=== PATIENT | male | born 1960 | race Caucasian/White ===

== ENCOUNTER 2016-09-23 16:30 | Emergency (ER) | payer MEDICAID, OTHER, SELFPAY ==
[2016-09-23] MEDS ORDERED: ACETAMINOPHEN 325 MG TAB As Ordered ONE (18:12)
[2016-09-23 18:26] LABS: ANION GAP 8 MEQ/L (8-16); BLOOD UREA NITROGEN 15 MG/DL (7-18); CALCIUM LEVEL 9.5 MG/DL (8.5-10.1); CARBON DIOXIDE LEVEL 29 MEQ/L (21-32); CHLORIDE LEVEL 105 MEQ/L (98-107); CREATININE FOR GFR 1.26 MG/DL (0.70-1.30); GLOMERULAR FILTRATION RATE > 60.0 (>56); GLUCOSE, FASTING 140 MG/DL (70-105); POTASSIUM SERUM 3.6 MEQ/L (3.5-5.1); SODIUM LEVEL 142 MEQ/L (136-145)
[2016-09-23 18:29] LABS: BASO # 0.1 K/mm3 (0.0-0.2); BASO % 0.9 % (0.0-1.0); EOS # 0.2 K/mm3 (0.0-0.50); EOS % 1.8 % (0.0-3.0); LARGE UNSTAINED CELL % 0.5 % (0.0-4.0); LYMPH # 0.7 K/mm3 (1.5-4.5); LYMPH % 7.5 % (24.0-44.0); MEAN CORPUSCULAR HEMOGLOBIN 32.8 pg (27.0-33.0); MEAN CORPUSCULAR HGB CONC 34.5 g/dl (32.0-36.5); MEAN CORPUSCULAR VOLUME 95.2 fl (80.0-96.0); MONO # 0.4 K/mm3 (0.0-0.8); MONO % 4.7 % (0.0-5.0); NEUTROPHILS # 7.9 K/mm3 (1.8-7.7); NEUTROPHILS % 84.7 % (36.0-66.0); PLATELET COUNT, AUTOMATED 240 k/mm3 (150-450); RED CELL DISTRIBUTION WIDTH 12.4 % (11.5-14.5); WHITE BLOOD COUNT 9.4 K/mm3 (4.0-10.0)
--- NOTE | 2016-09-23 19:15 | REP ---
Chest x-ray: Two views: History: CVA greater than 4 1/2 hours. Findings: The lungs are well inflated and clear. CP angles are sharp. Heart is not enlarged. The aorta is slightly tortuous. No bony abnormality is seen. Pulmonary vasculature is not increased. Impression: No active disease. Signed by Americo Barker MD 09/23/2016 07:31 P
--- NOTE | 2016-09-23 19:16 | REP ---
CT study of the brain without contrast: History: CVA greater than 4 1/2 hours. No comparison study. Findings: Bone window settings demonstrate an intact bony calvarium. Visualized paranasal sinuses are clear. There is mild diffuse cerebral atrophy. Some small vessel changes are seen in the periventricular white matter of the parietal lobes. There is no evidence of intracranial hemorrhage. No extra-axial fluid collection is seen. No cortical infarct is appreciated. No mass or midline shift is seen. There is minimal vascular calcification. Impression: Diffuse atrophy and vascular calcification. Mild small vessel changes. No acute intracranial abnormality. Signed by Americo Barker MD 09/23/2016 07:31 P
--- NOTE | 2016-09-23 20:40 | REPUSA ---
MRA of the brain Clinical history: stroke. Technique: [id number] MRA images of the brain were obtained without administration of contrast. 3 -D MIP images were also obtained. Findings: The vascular structures extending from the distal carotid and vertebrobasilar arterial syst ems, through the [place], demonstrate normal caliber and contour. There is no evidence of an eurysm, stenosis, or thrombosis. Impression: Unremarkable MRA examination of the brain.
--- NOTE | 2016-09-23 20:40 | REPUSA ---
MRI of the brain without contrast Clinical history: stroke. Technique: Multiecho multiplanar MRI images of the brain were obtained without administration of cont rast. Diffusion weighted images with ADC mapping was also obtained. Findings: The ventricles and sulci are symmetric bilaterally. There is minimal T2 hyperintensity in the subcort ical white matter bilaterally. The brain parenchyma otherwise demonstrates uniform and normal signal on all sequences. There is no midline shift, mass effect, or extra-axial fluid collection. The midlin e intracranial structures do not demonstrate any gross abnormalities. The cervical cranial junction i s intact. The orbits are unremarkable. The visualized paranasal sinuses and mastoid air cells are britany ar. The osseous structures and superficial soft tissues are unremarkable. The vascular structures dem onstrate appropriate flow voids. Impression: No evidence of acute hemorrhage or infarct. Subcortical white matter signal changes sugge st mild chronic small vessel ischemic disease.
--- NOTE | 2016-09-23 22:40 | EDDOCDS ---
Physician Documentation [facility] Name: Yogesh Finley Age: 56 yrs Sex: Male : 1960 Arrival Date: 09/23/2016 Time: 16:30 Bed 11 Private MD: Daniella Rowley Disposition: 09/23 18:35 I have independently interviewed and examined the patient, and I agree with the pc investigation, diagnosis and treatment plan as documented by the Resident. Disposition: 09/23/16 22:28 Discharged to Home/Self Care. Impression: Transient cerebral ischemic attack, unspecified. - Condition is Stable. - Medication Reconciliation, Local Pharmacy Hours form. - Follow up: Daniella Rowley; When: 2 - 3 days; Reason: Recheck today's complaints. - Problem is new. - Symptoms have improved. Historical: - Allergies: no known allergies; - Home Meds: 1. lisinopril 40 mg Oral tab 1 tab once daily 2. gabapentin 300 mg am and 600 mg pm Oral tab 3. baclofen 10 mg Oral tab bid 4. atorvastatin 20 mg oral tab 0.5 tab once daily 5. Vitamin D3 1,000 unit oral tab daily 6. Sertraline 50 mg nightly 7. tamsulosin 0.4 mg oral cp24 1 cap once daily 8. amlodipine 10 mg Oral tab 1 tab once daily - PMHx: CVA (2014); TIA; Hypertension; BPH; Hypercholesterolemia; neuropathy; - PSHx: Tonsillectomy; - Social history: Smoking status: Patient states was never smoker of tobacco. No barriers to communication noted, The patient speaks fluent Hebrew. - Family history: Not pertinent. - Exposure Risk Screening:: None identified. Vital Signs: 16:32 BP 169 / 84; Pulse 110; Resp 16; Temp 101.7(T); Pulse Ox 99% on R/A; Weight 101.6 kg / rs6 223.99 lbs (R); Height 5 ft. 8 in. (172.72 cm) (R); Pain 7/10; 16:58 BP 140 / 71 (auto/); ead 17:00 Pulse 108 MON; Resp 16; Pulse Ox 95% on R/A; ead 17:13 BP 132 / 68 (auto/); ead 17:14 Pulse 108 MON; Pulse Ox 98% ; ead 17:28 BP 132 / 68 (auto/); ead 17:29 Pulse 108 MON; Pulse Ox 97% ; ead 17:43 BP 131 / 68 (auto/); ead 17:44 Pulse 108 MON; Pulse Ox 95% ; ead 17:58 BP 134 / 66 (auto/); ead 17:58 Pulse 108 MON; Pulse Ox 98% ; ead 18:22 BP 132 / 79 (auto/); ead 18:24 Pulse 106 MON; Pulse Ox 97% ; ead 18:28 BP 130 / 72 (auto/); mlc 18:29 Pulse 106 MON; Pulse Ox 96% ; mlc 18:43 BP 127 / 67 (auto/); mlc 18:44 Pulse 106 MON; Pulse Ox 94% ; mlc 18:58 BP 123 / 64 (auto/); mlc 18:59 Pulse 106 MON; Pulse Ox 97% ; mlc 19:13 BP 127 / 70 (auto/); mlc 19:14 Pulse 104 MON; Pulse Ox 95% ; mlc 19:28 BP 120 / 64 (auto/); mlc 19:29 Pulse 102 MON; Pulse Ox 95% ; mlc 19:35 Temp 100.6(O); cln 19:43 BP 121 / 65 (auto/); mlc 19:44 Pulse 106 MON; Pulse Ox 95% ; mlc 20:56 BP 117 / 66 (auto/); mlc 20:58 Pulse 94 MON; Pulse Ox 95% ; mlc 21:26 Pulse 98 MON; Pulse Ox 95% ; mlc 21:26 BP 119 / 68 (auto/); mlc 21:56 Pulse 92 MON; Pulse Ox 95% ; mlc 21:56 BP 113 / 72 (auto/); mlc 22:25 Pulse 90 MON; Pulse Ox 96% ; mlc 22:37 BP 123 / 70; Pulse 88; Resp 18; Temp 99.5(O); Pulse Ox 94% ; Pain 0/10; mlc 16:32 Body Mass Index 34.06 (101.60 kg, 172.72 cm) rs6 MDM: 17:47 CBC with Diff Ordered. EDMS 17:47 BMP Ordered. EDMS 17:47 CT Head Without Contrast Ordered. EDMS 17:48 Chest, 2 View (pa\E\lat) Ordered. EDMS 18:02 Acetaminophen Tablet 650 mg PO once ordered. jo4 18:04 UA Ordered. EDMS 18:18 [facility] Payment Agreement was scanned into [employer] and attached to record. jp5 18:19 Financial registration complete. jp5 18:20 MRI Screening Tool - Place on chart, inform RN ordered. jo4 18:21 -MRA-Brain without contrast Ordered. EDMS 18:21 -MRI-Brain without Ordered. EDMS 18:28 BMP Reviewed. jo4 18:30 CBC with Diff Reviewed. jo4 18:30 MRI Screening Tool - Place on chart, inform RN complete. lbd 18:59 Misc Electronic Heat Seal Operator Order ordered. jo4 18:59 UA Reviewed. jo4 19:01 Misc Electronic Heat Seal Operator Order complete. ml3 Administered Medications: 18:25 Drug: Acetaminophen 650 mg [acetaminophen 325 mg tablet (2 tabs)] Route: PO; ead Signatures: Dispatcher [employer] EDMS Riccardo Blue MD MD pc Daly, Linda, Switchboard Inspector Unit lbd Yann VeritoBrendaJo-Ann, Switchboard Inspector Unit ml3 Consuelo Dallas, RN RN Louie Guevara, DO cs11 Any Garcia,RN RN Tenizn Fitch jp5 Trista Sauer, DO DO jo4 Nathalie Oquendo RN eachristopher The chart was reviewed and I authenticate all verbal orders and agree with the evaluation and treatment provided.Attachments: 18:18 [facility] Payment Agreement jp5 MTDD
--- NOTE | 2016-09-23 22:40 | EDDOCDS ---
Nurse's Notes [facility] Name: Yogesh Finley Age: 56 yrs Sex: Male : 1960 Arrival Date: 09/23/2016 Time: 16:30 Bed 11 Private MD: Daniella Rowley Diagnosis: Transient cerebral ischemic attack, unspecified Presentation: 09/23 16:36 Presenting complaint: Patient states: upon waking at 0600 this morning noted droop to jjr right with change in speech, pt was at scheduled [place] [facility] appt and was directed here. The last date and time the patient was known to be well was was at 22:00 on September 22, 2016. An acute neurological deficit is present. The patient has been moved to a treatment area. Pre-hospital glucose is not applicable to this patient. Adult Sepsis Screening: Patient has new or worsening altered mentation (1 point). Patient's respiratory rate is less than 22. Systolic blood pressure is greater than 100. Patient has a qSOFA score of 1- Negative Sepsis Screen. Suicide/Homicide risk assessment- the patient denies having any suicidal and/or homicidal ideations and does not present with any other emotional, behavioral or mental health complaints. 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 Transition of care: patient was received [facility] a primary [facility] office[facility] 16:36 Acuity: JESSE Level 3 jjr 16:36 Method Of Arrival: Wheelchair jjr Triage Assessment: 16:44 The onset of the patients symptoms was more than three hours ago. General: Appears in jjr no apparent distress. General: Reports chills for 0-12 hours. Pain: Location: left leg. Pt Declines HIV testing. Neurological: Level of Consciousness is awake, alert, Facial droop on right, Numbness in left arm and left leg Reports weakness. Historical: - Allergies: no known allergies; - Home Meds: 1. lisinopril 40 mg Oral tab 1 tab once daily 2. gabapentin 300 mg am and 600 mg pm Oral tab 3. baclofen 10 mg Oral tab bid 4. atorvastatin 20 mg oral tab 0.5 tab once daily 5. Vitamin D3 1,000 unit oral tab daily 6. Sertraline 50 mg nightly 7. tamsulosin 0.4 mg oral cp24 1 cap once daily 8. amlodipine 10 mg Oral tab 1 tab once daily - PMHx: CVA (2014); TIA; Hypertension; BPH; Hypercholesterolemia; neuropathy; - PSHx: Tonsillectomy; - Social history: Smoking status: Patient states was never smoker of tobacco. No barriers to communication noted, The patient speaks fluent Amharic. - Family history: Not pertinent. - Exposure Risk Screening:: None identified. Screenin:28 Screening information is obtained from the patient. Fall risk: At risk due to gait mlc disturbance, weakness. Abuse/DV Screen: The patient / caregiver reports he/she is: not in a situation that causes fear, pain or injury. Nutritional screening: No deficits noted. home support is adequate. 19:29 Assistance ADL's: Requires assistance with meal preparation, this assistance is mlc provided by family members, housework, assistance is provided by family members. Advance Directives: Currently, there is no health care proxy. There is no active DNR order. There is no living will. There is no Power of Career Development Consultant. Assessment: 17:15 General: Appears in no apparent distress, comfortable, Behavior is appropriate for age, ead cooperative, pleasant. Pain:. Pain: Denies pain. Neurological: Level of Consciousness is awake, alert, obeys commands, Oriented to person, place, time, Regional Director Of Admissions are equal bilaterally Moves all extremities. Weakness in left leg(s) Speech with expressive aphasia noted, Facial droop on right, Facial symmetry: tongue is midline, Pupils are PERRLA, pt states "mild tingling in right leg.". Denies dizziness, headache Reports left sided weakness from previous CVA. denies changes in left sided deficits. . Cardiovascular: Capillary refill < 3 seconds in bilateral fingers Chest pain is denied. Respiratory: Airway is patent Respiratory effort is even, unlabored, Denies shortness of breath. Derm: Skin is pink, warm & dry. 18:15 General: Appears in no apparent distress, comfortable, Behavior is appropriate for age, ead cooperative. Neurological: Level of Consciousness is awake, alert, obeys commands, Oriented to person, place, time. Respiratory: Airway is patent Respiratory effort is even, unlabored. Derm: Skin is pink, warm & dry. 19:15 General: Appears in no apparent distress, comfortable, Behavior is cooperative. mlc General: Reports fatigue for. General: pt awaking MRI. Pain: Denies pain. Neurological: Level of Consciousness is awake, alert, Oriented to person, place, time. Neurological: Regional Director Of Admissions are equal bilaterally Weakness in left leg(s) Facial droop on right, Facial symmetry: tongue is midline. Cardiovascular: Heart tones S1 S2 present Rhythm is sinus tachycardia. Respiratory: Airway is patent Respiratory effort is even, unlabored, Respiratory pattern is regular, Breath sounds are clear bilaterally. GI: Abdomen is obese, Bowel sounds present X 4 quads. Derm: Skin is pink, warm & dry. 20:10 Reassessment: pt currently in MRI. mlc 20:54 General: Appears in no apparent distress, comfortable, Behavior is cooperative. mlc General: no changes since prior. resp easy/unlabored. . 21:24 Reassessment: Patient appears in no apparent distress at this time. no changes since mlc prior. pt resting comfortably in bed, resp easy/unlabored . 22:26 Reassessment: Patient appears in no apparent distress at this time. Patient denies pain mlc at this time. pt resting comfortably in bed, resp easy/unlabored. pt offers no complaints. . 22:37 General: Appears in no apparent distress, comfortable, Behavior is cooperative. mlc Neurological: Level of Consciousness is awake, alert, Oriented to person, place, time. Respiratory: Airway is patent Respiratory effort is even, unlabored, Respiratory pattern is regular. Derm: Skin is pink, warm & dry. Vital Signs: 16:32 BP 169 / 84; Pulse 110; Resp 16; Temp 101.7(T); Pulse Ox 99% on R/A; Weight 101.6 kg rs6 (R); Height 5 ft. 8 in. (172.72 cm) (R); Pain 7/10; 16:58 BP 140 / 71 (auto/); ead 17:00 Pulse 108 MON; Resp 16; Pulse Ox 95% on R/A; ead 17:13 BP 132 / 68 (auto/); ead 17:14 Pulse 108 MON; Pulse Ox 98% ; ead 17:28 BP 132 / 68 (auto/); ead 17:29 Pulse 108 MON; Pulse Ox 97% ; ead 17:43 BP 131 / 68 (auto/); ead 17:44 Pulse 108 MON; Pulse Ox 95% ; ead 17:58 BP 134 / 66 (auto/); ead 17:58 Pulse 108 MON; Pulse Ox 98% ; ead 18:22 BP 132 / 79 (auto/); ead 18:24 Pulse 106 MON; Pulse Ox 97% ; ead 18:28 BP 130 / 72 (auto/); mlc 18:29 Pulse 106 MON; Pulse Ox 96% ; mlc 18:43 BP 127 / 67 (auto/); mlc 18:44 Pulse 106 MON; Pulse Ox 94% ; mlc 18:58 BP 123 / 64 (auto/); mlc 18:59 Pulse 106 MON; Pulse Ox 97% ; mlc 19:13 BP 127 / 70 (auto/); mlc 19:14 Pulse 104 MON; Pulse Ox 95% ; mlc 19:28 BP 120 / 64 (auto/); mlc 19:29 Pulse 102 MON; Pulse Ox 95% ; mlc 19:35 Temp 100.6(O); cln 19:43 BP 121 / 65 (auto/); mlc 19:44 Pulse 106 MON; Pulse Ox 95% ; mlc 20:56 BP 117 / 66 (auto/); mlc 20:58 Pulse 94 MON; Pulse Ox 95% ; mlc 21:26 Pulse 98 MON; Pulse Ox 95% ; mlc 21:26 BP 119 / 68 (auto/); mlc 21:56 Pulse 92 MON; Pulse Ox 95% ; mlc 21:56 BP 113 / 72 (auto/); mlc 22:25 Pulse 90 MON; Pulse Ox 96% ; mlc 22:37 BP 123 / 70; Pulse 88; Resp 18; Temp 99.5(O); Pulse Ox 94% ; Pain 0/10; mlc 16:32 Body Mass Index 34.06 (101.60 kg, 172.72 cm) rs6 Vitals: 16:32 Log In Time: September 23, 2016 at 16:32. RN notified that patient meets Red Flag rs6 criteria. ED Course: 16:32 Patient visited by Caryn Vasquez PCA. rs6 16:32 Daniella Rowley is Private Physician. rs6 16:32 Patient moved to Waiting rs6 16:34 Patient visited by Caryn Vasquez PCA. rs6 16:40 Triage Initiated jjr 16:46 Nathalie Oquendo RN is Primary Nurse. jjr 16:46 Trista Sauer DO is PHCP. jo4 16:46 Riccardo Blue MD is Attending Physician. jo4 16:46 Patient moved to 11 jjr 16:57 Patient visited by Trista Sauer DO. jo4 16:57 Patient visited by Trista Sauer DO. jo4 17:01 Inserted saline lock: 18 gauge in right antecubital area and blood collected. The ead patient tolerated the procedure well. 17:07 The patient / caregiver is instructed regarding the plan of care and ED course. Patient ead has correct armband on for positive identification. Placed in gown. Bed in low position. Call light in reach. Side rails up X2. Adult w/ patient. complaint evaluation officer on. Pulse ox on. NIBP on. 17:14 Patient visited by Nathalie Oquendo RN. ead 17:52 BMP Sent. ead 17:52 CBC with Diff Sent. ead 18:18 Patient visited by Nathalie Oquendo RN. ead 18:18 [facility] Payment Agreement was scanned into [employer] and attached to record. jp5 18:25 Patient visited by Nathalie Oquendo RN. ead 18:25 UA Sent. ead 19:15 Any Garcia,ALBIN is Primary Nurse. mlc 19:17 Patient visited by Any Garcia RN. mlc 19:31 Primary Nurse role handed off by Nathalie Oquendo RN mcp 19:35 Patient visited by Tenisha Blanco PCA. cln 19:41 Chest, 2 View (pa\\E\\lat) Returned. EDMS 19:41 CT Head Without Contrast Returned. EDMS 19:49 Patient name changed from Yogesh\\S\\D\\S\\Willaims\\S\\ to Yogesh\\S\\D\\S\\Tushar. EDMS 19:50 Patient moved to MRI ml3 20:12 Patient visited by Any Garcia RN. mlc 20:46 Patient moved to 11 ml3 20:55 Patient visited by Any Garcia,ALBIN. mlc 21:26 Patient visited by Any Garcia RN. mlc 21:26 -MRA-Brain without contrast Returned. EDMS 21:26 -MRI-Brain without Returned. EDMS 21:42 Attending Physician role handed off by Riccardo Blue MD cs11 21:42 Louie Wing DO is Attending Physician. cs11 22:28 Patient visited by Any Garcia RN. mlc 22:28 Daniella Rowley is Referral Physician. cs11 22:37 Discontinued IV lock intact, bleeding controlled, pressure dressing applied, No mlc redness/swelling at site. No procedures done that require assistance. Administered Medications: 18:25 Drug: Acetaminophen 650 mg [acetaminophen 325 mg tablet (2 tabs)] Route: PO; ead Order Results: Lab Order: CBC with Diff; SPEC'M 09/23/16 16:59 Test: WHITE BLOOD COUNT; Value: 9.4; Range: 4.0-10.0; Units: K/mm3; Status: F Test: RED BLOOD COUNT; Value: 4.32; Range: 4.30-6.10; Units: M/mm3; Status: F Test: HEMOGLOBIN; Value: 14.2; Range: 14.0-18.0; Units: g/dl; Status: F Test: HEMATOCRIT; Value: 41.1; Range: 42.0-52.0; Abnormal: Below low normal; Units: %; Status: F Test: MEAN CORPUSCULAR VOLUME; Value: 95.2; Range: 80.0-96.0; Units: fl; Status: F Test: MEAN CORPUSCULAR HEMOGLOBIN; Value: 32.8; Range: 27.0-33.0; Units: pg; Status: F Test: MEAN CORPUSCULAR HGB CONC; Value: 34.5; Range: 32.0-36.5; Units: g/dl; Status: F Test: RED CELL DISTRIBUTION WIDTH; Value: 12.4; Range: 11.5-14.5; Units: %; Status: F Test: PLATELET COUNT, AUTOMATED; Value: 240; Range: 150-450; Units: k/mm3; Status: F Test: NEUTROPHILS %; Value: 84.7; Range: 36.0-66.0; Abnormal: Above high normal; Units: %; Status: F Test: LYMPH %; Value: 7.5; Range: 24.0-44.0; Abnormal: Below low normal; Units: %; Status: F Test: MONO %; Value: 4.7; Range: 0.0-5.0; Units: %; Status: F Test: EOS %; Value: 1.8; Range: 0.0-3.0; Units: %; Status: F Test: BASO %; Value: 0.9; Range: 0.0-1.0; Units: %; Status: F Test: LARGE UNSTAINED CELL %; Value: 0.5; Range: 0.0-4.0; Units: %; Status: F Test: NEUTROPHILS #; Value: 7.9; Range: 1.8-7.7; Abnormal: Above high normal; Units: K/mm3; Status: F Test: LYMPH #; Value: 0.7; Range: 1.5-4.5; Abnormal: Below low normal; Units: K/mm3; Status: F Test: MONO #; Value: 0.4; Range: 0.0-0.8; Units: K/mm3; Status: F Test: EOS #; Value: 0.2; Range: 0.0-0.50; Units: K/mm3; Status: F Test: BASO #; Value: 0.1; Range: 0.0-0.2; Units: K/mm3; Status: F Test: LARGE UNSTAINED CELL #; Value: 0.0; Range: 0.0-0.4; Units: K/mm3; Status: F Lab Order: [facility]; SPEC'M 09/23/16 16:59 Test: GLUCOSE, FASTING; Value: 140; Range: 70-105; Abnormal: Above high normal; Units: MG/DL; Status: F Test: BLOOD UREA NITROGEN; Value: 15; Range: 7-18; Units: MG/DL; Status: F Test: CREATININE FOR GFR; Value: 1.26; Range: 0.70-1.30; Units: MG/DL; Status: F Test: GLOMERULAR FILTRATION RATE; Value: > 60.0; Range: >56; Status: F Test: SODIUM LEVEL; Value: 142; Range: 136-145; Units: MEQ/L; Status: F Test: POTASSIUM SERUM; Value: 3.6; Range: 3.5-5.1; Units: MEQ/L; Status: F Test: CHLORIDE LEVEL; Value: 105; Range: 98-107; Units: MEQ/L; Status: F Test: CARBON DIOXIDE LEVEL; Value: 29; Range: 21-32; Units: MEQ/L; Status: F Test: ANION GAP; Value: 8; Range: 8-16; Units: MEQ/L; Status: F Test: CALCIUM LEVEL; Value: 9.5; Range: 8.5-10.1; Units: MG/DL; Status: F Test Note: ; Units are mL/min/1.73 m2 Chronic Kidney Disease Staging per NKF: Stage I & II GFR >=60 Normal to Mildly Decreased Stage III GFR 30-59 Moderately Decreased Stage IV GFR 15-29 Severely Decreased Stage V GFR <15 Very Little GFR Left ESRD GFR <15 on SOCIAL CONTACT WORKER Lab Order: UA; SPEC'M 09/23/16 18:23 Test: APPEARANCE, URINE; Value: CLEAR; Range: CLEAR; Status: F Test: COLOR, URINE; Value: YELLOW; Range: YELLOW; Status: F Test: PH,URINE; Value: 5.0; Range: 5.0-9.0; Units: UNITS; Status: F Test: SPECIFIC GRAVITY URINE AUTO; Value: 1.015; Range: 1.002-1.035; Status: F Test: PROTEIN, URINE AUTO; Value: NEGATIVE; Range: NEGATIVE; Units: mg/dL; Status: F Test: GLUCOSE, URINE (UA) AUTO; Value: NEGATIVE; Range: NEGATIVE; Units: mg/dL; Status: F Test: KETONE, URINE AUTO; Value: NEGATIVE; Range: NEGATIVE; Units: mg/dL; Status: F Test: UROBILINOGEN, URINE AUTO; Value: 0.2; Range: 0.0-2.0; Units: mg/dL; Status: F Test: BILIRUBIN, URINE AUTO; Value: NEGATIVE; Range: NEGATIVE; Status: F Test: NITRITE, URINE AUTO; Value: NEGATIVE; Range: NEGATIVE; Status: F Test: LEUKOCYTE ESTERASE, URINE AUTO; Value: NEGATIVE; Range: NEGATIVE; Status: F Test: BLOOD, URINE BLOOD; Value: NEGATIVE; Range: NEGATIVE; Status: F Test: WBC, URINE AUTO; Value: 4; Range: 0-3; Abnormal: Above high normal; Units: /HPF; Status: F Test: RBC, URINE AUTO; Value: 1; Range: 0-3; Units: /HPF; Status: F Test: BACTERIA, URINE AUTO; Value: NEGATIVE; Range: NEGATIVE; Status: F Test: SQUAMOUS EPITHELIAL CELL UR AU; Value: 0; Range: 0-6; Units: /HPF; Status: F Test: MUCUS, URINE; Value: SMALL; Range: NEGATIVE; Status: F Test: HYALINE CAST, URINE AUTO; Value: 0; Range: 0-1; Units: /LPF; Status: F Radiology Order: CT Head Without Contrast Test: CT Head Without Contrast REASON FOR EXAMINATION: CVA >4.5hrs; CT study of the brain without contrast:; ; History: CVA greater than 4 1/2 hours.; ; No comparison study.; ; Findings: Bone window settings demonstrate an intact bony calvarium. Visualized; paranasal sinuses are clear.; ; There is mild diffuse cerebral atrophy. Some small vessel changes are seen in; the periventricular white matter of the parietal lobes. There is no evidence of; intracranial hemorrhage. No extra-axial fluid collection is seen. No cortical; infarct is appreciated. No mass or midline shift is seen. There is minimal; vascular calcification.; ; Impression:; ; Diffuse atrophy and vascular calcification. Mild small vessel changes. No acute; intracranial abnormality.; ; ; Signed by; Americo Barker MD 09/23/2016 07:31 P; Radiology Order: Chest, 2 View (pa\\E\\lat) Test: Chest, 2 View (pa\\E\\lat) REASON FOR EXAMINATION: CVA >4.5hrs; Chest x-ray: Two views:; ; History: CVA greater than 4 1/2 hours.; ; Findings: The lungs are well inflated and clear. CP angles are sharp. Heart is; not enlarged. The aorta is slightly tortuous. No bony abnormality is seen.; Pulmonary vasculature is not increased.; ; Impression:; ; No active disease.; ; ; Signed by; Americo Barker MD 09/23/2016 07:31 P; Radiology Order: -MRA-Brain without contrast Test: -MRA-Brain without contrast REASON FOR EXAMINATION: CVA >4.5hrs; ; MRA of the brain; Clinical history: stroke.; Technique: [id number] MRA images of the brain were obtained without administration of contrast. 3; -D MIP images were also obtained.; Findings: The vascular structures extending from the distal carotid and vertebrobasilar arterial syst; ems, through the [place] of [place], demonstrate normal caliber and contour. There is no evidence of an; eurysm, stenosis, or thrombosis.; Impression: Unremarkable MRA examination of the brain.; ; Radiology Order: -MRI-Brain without Test: -MRI-Brain without REASON FOR EXAMINATION: CVA >4.5hrs; ; MRI of the brain without contrast; Clinical history: stroke.; Technique: Multiecho multiplanar MRI images of the brain were obtained without administration of cont; rast. Diffusion weighted images with ADC mapping was also obtained.; Findings:; The ventricles and sulci are symmetric bilaterally. There is minimal T2 hyperintensity in the subcort; ical white matter bilaterally. The brain parenchyma otherwise demonstrates uniform and normal signal; on all sequences. There is no midline shift, mass effect, or extra-axial fluid collection. The midlin; e intracranial structures do not demonstrate any gross abnormalities. The cervical cranial junction i; s intact. The orbits are unremarkable. The visualized paranasal sinuses and mastoid air cells are britany; ar. The osseous structures and superficial soft tissues are unremarkable. The vascular structures dem; onstrate appropriate flow voids.; Impression: No evidence of acute hemorrhage or infarct. Subcortical white matter signal changes sugge; st mild chronic small vessel ischemic disease.; ; Outcome: 22:27 MRI Study completed. [facility] 22:27 CT Study completed. [facility] 22:28 Discharge ordered by Provider. cs11 22:37 Discharge Assessment: Patient awake, alert and oriented x 3. No cognitive and/or mlc functional deficits noted. Patient verbalized understanding of disposition instructions. patient administered narcotics - no. The following High Risk Discharge criteria are identified: None. Discharged to home via wheelchair, with family. Condition: good Condition: stable. Discharge instructions given to patient, Instructed on discharge instructions, follow up and referral plans. Demonstrated understanding of instructions, Pt was receptive of discharge instructions/ teaching. Property sent home with patient. 22:39 Patient left the ED. [facility] Signatures: Dispatcher [employer] EDMS Verito Beckett RN Briana Bob mcp, Beveling Machine Operator Unit ml3 Consuelo Dallas RN RN jjr Schiff, Craig, DO DO cs11 Nathalie Oquendo RN RN ead Booth, Mandy, RN RN mlc Schmitt, Rebecca, CHARLEE BRASS RECLAIMER rs6 Tenzin Contreras jp5 Trista Sauer DO DO jo4 Bella, Tenisha, BRASS RECLAIMER BRASS RECLAIMER cln MTDD
--- NOTE | 2016-09-25 23:40 | EDDOCDS ---
Physician Documentation [facility] Name: Yogesh Finley Age: 56 yrs Sex: Male : 1960 Arrival Date: 09/23/2016 Time: 16:30 Bed 11 Private MD: Daniella Rowley Disposition: 09/23 18:35 I have independently interviewed and examined the patient, and I agree with the pc investigation, diagnosis and treatment plan as documented by the Resident. Disposition: 09/23/16 22:28 Discharged to Home/Self Care. Impression: Transient cerebral ischemic attack, unspecified. - Condition is Stable. - Medication Reconciliation, Local Pharmacy Hours form. - Follow up: Daniella Rowley; When: 2 - 3 days; Reason: Recheck today's complaints. - Problem is new. - Symptoms have improved. Historical: - Allergies: no known allergies; - Home Meds: 1. lisinopril 40 mg Oral tab 1 tab once daily 2. gabapentin 300 mg am and 600 mg pm Oral tab 3. baclofen 10 mg Oral tab bid 4. atorvastatin 20 mg oral tab 0.5 tab once daily 5. Vitamin D3 1,000 unit oral tab daily 6. Sertraline 50 mg nightly 7. tamsulosin 0.4 mg oral cp24 1 cap once daily 8. amlodipine 10 mg Oral tab 1 tab once daily - PMHx: CVA (2014); TIA; Hypertension; BPH; Hypercholesterolemia; neuropathy; - PSHx: Tonsillectomy; - Social history: Smoking status: Patient states was never smoker of tobacco. No barriers to communication noted, The patient speaks fluent Ukrainian. - Family history: Not pertinent. - Exposure Risk Screening:: None identified. Vital Signs: 16:32 BP 169 / 84; Pulse 110; Resp 16; Temp 101.7(T); Pulse Ox 99% on R/A; Weight 101.6 kg / rs6 223.99 lbs (R); Height 5 ft. 8 in. (172.72 cm) (R); Pain 7/10; 16:58 BP 140 / 71 (auto/); ead 17:00 Pulse 108 MON; Resp 16; Pulse Ox 95% on R/A; ead 17:13 BP 132 / 68 (auto/); ead 17:14 Pulse 108 MON; Pulse Ox 98% ; ead 17:28 BP 132 / 68 (auto/); ead 17:29 Pulse 108 MON; Pulse Ox 97% ; ead 17:43 BP 131 / 68 (auto/); ead 17:44 Pulse 108 MON; Pulse Ox 95% ; ead 17:58 BP 134 / 66 (auto/); ead 17:58 Pulse 108 MON; Pulse Ox 98% ; ead 18:22 BP 132 / 79 (auto/); ead 18:24 Pulse 106 MON; Pulse Ox 97% ; ead 18:28 BP 130 / 72 (auto/); mlc 18:29 Pulse 106 MON; Pulse Ox 96% ; mlc 18:43 BP 127 / 67 (auto/); mlc 18:44 Pulse 106 MON; Pulse Ox 94% ; mlc 18:58 BP 123 / 64 (auto/); mlc 18:59 Pulse 106 MON; Pulse Ox 97% ; mlc 19:13 BP 127 / 70 (auto/); mlc 19:14 Pulse 104 MON; Pulse Ox 95% ; mlc 19:28 BP 120 / 64 (auto/); mlc 19:29 Pulse 102 MON; Pulse Ox 95% ; mlc 19:35 Temp 100.6(O); cln 19:43 BP 121 / 65 (auto/); mlc 19:44 Pulse 106 MON; Pulse Ox 95% ; mlc 20:56 BP 117 / 66 (auto/); mlc 20:58 Pulse 94 MON; Pulse Ox 95% ; mlc 21:26 Pulse 98 MON; Pulse Ox 95% ; mlc 21:26 BP 119 / 68 (auto/); mlc 21:56 Pulse 92 MON; Pulse Ox 95% ; mlc 21:56 BP 113 / 72 (auto/); mlc 22:25 Pulse 90 MON; Pulse Ox 96% ; mlc 22:37 BP 123 / 70; Pulse 88; Resp 18; Temp 99.5(O); Pulse Ox 94% ; Pain 0/10; mlc 16:32 Body Mass Index 34.06 (101.60 kg, 172.72 cm) rs6 MDM: 17:47 CBC with Diff Ordered. EDMS 17:47 BMP Ordered. EDMS 17:47 CT Head Without Contrast Ordered. EDMS 17:48 Chest, 2 View (pa\E\lat) Ordered. EDMS 18:02 Acetaminophen Tablet 650 mg PO once ordered. jo4 18:04 UA Ordered. EDMS 18:18 [facility] Payment Agreement was scanned into [employer] and attached to record. jp5 18:19 Financial registration complete. jp5 18:20 MRI Screening Tool - Place on chart, inform RN ordered. jo4 18:21 -MRA-Brain without contrast Ordered. EDMS 18:21 -MRI-Brain without Ordered. EDMS 18:28 BMP Reviewed. jo4 18:30 CBC with Diff Reviewed. jo4 18:30 MRI Screening Tool - Place on chart, inform RN complete. lbd 18:59 Misc Medical Records Technician Order ordered. jo4 18:59 UA Reviewed. jo4 19:01 Misc Medical Records Technician Order complete. ml3 09/24 19:07 T-Sheet-- Draft Copy was scanned into [employer] and attached to record. klr Administered Medications: 09/23 18:25 Drug: Acetaminophen 650 mg [acetaminophen 325 mg tablet (2 tabs)] Route: PO; ead Signatures: Dispatcher [employer] EDMS Riccardo Blue MD MD pc Daly, Linda, Director Of Corporate Marketing Unit lbd Briana Lerner, Director Of Corporate Marketing Unit 3 Consuelo Dallas, RN RN Louie Guevara DO DO cs11 Any Garcia,RN RN Tenzin Fitch jp5 Trista Sauer, DO jo4 Vianney Bliss Emily RN eachristopher The chart was reviewed and I authenticate all verbal orders and agree with the evaluation and treatment provided.Attachments: 18:18 [facility] Payment Agreement jp5 09/24 19:07 T-Sheet-- Draft Copy klr Chart Complete MTDD
--- NOTE | 2016-09-25 23:40 | EDDOCDS ---
Nurse's Notes [facility] Name: Yogesh Finley Age: 56 yrs Sex: Male : 1960 Arrival Date: 09/23/2016 Time: 16:30 Bed 11 Private MD: Daniella Rowley Diagnosis: Transient cerebral ischemic attack, unspecified Presentation: 09/23 16:36 Presenting complaint: Patient states: upon waking at 0600 this morning noted droop to jjr right with change in speech, pt was at scheduled [facility] appt and was directed here. The last date and time the patient was known to be well was was at 22:00 on September 22, 2016. An acute neurological deficit is present. The patient has been moved to a treatment area. Pre-hospital glucose is not applicable to this patient. Adult Sepsis Screening: Patient has new or worsening altered mentation (1 point). Patient's respiratory rate is less than 22. Systolic blood pressure is greater than 100. Patient has a qSOFA score of 1- Negative Sepsis Screen. Suicide/Homicide risk assessment- the patient denies having any suicidal and/or homicidal ideations and does not present with any other emotional, behavioral or mental health complaints. Status: Patient is not a imaging services director or dependent. Transition of care: patient was received [facility] a primary [facility] office[facility] 16:36 Acuity: JESSE Level 3 jjr 16:36 Method Of Arrival: Wheelchair jjr Triage Assessment: 16:44 The onset of the patients symptoms was more than three hours ago. General: Appears in jjr no apparent distress. General: Reports chills for 0-12 hours. Pain: Location: left leg. Pt Declines HIV testing. Neurological: Level of Consciousness is awake, alert, Facial droop on right, Numbness in left arm and left leg Reports weakness. Historical: - Allergies: no known allergies; - Home Meds: 1. lisinopril 40 mg Oral tab 1 tab once daily 2. gabapentin 300 mg am and 600 mg pm Oral tab 3. baclofen 10 mg Oral tab bid 4. atorvastatin 20 mg oral tab 0.5 tab once daily 5. Vitamin D3 1,000 unit oral tab daily 6. Sertraline 50 mg nightly 7. tamsulosin 0.4 mg oral cp24 1 cap once daily 8. amlodipine 10 mg Oral tab 1 tab once daily - PMHx: CVA (2014); TIA; Hypertension; BPH; Hypercholesterolemia; neuropathy; - PSHx: Tonsillectomy; - Social history: Smoking status: Patient states was never smoker of tobacco. No barriers to communication noted, The patient speaks fluent Lithuanian. - Family history: Not pertinent. - Exposure Risk Screening:: None identified. Screenin:28 Screening information is obtained from the patient. Fall risk: At risk due to gait mlc disturbance, weakness. Abuse/DV Screen: The patient / caregiver reports he/she is: not in a situation that causes fear, pain or injury. Nutritional screening: No deficits noted. home support is adequate. 19:29 Assistance ADL's: Requires assistance with meal preparation, this assistance is mlc provided by family members, housework, assistance is provided by family members. Advance Directives: Currently, there is no health care proxy. There is no active DNR order. There is no living will. There is no Power of Secondary History Teacher. Assessment: 17:15 General: Appears in no apparent distress, comfortable, Behavior is appropriate for age, ead cooperative, pleasant. Pain:. Pain: Denies pain. Neurological: Level of Consciousness is awake, alert, obeys commands, Oriented to person, place, time, Test Desk Supervisor are equal bilaterally Moves all extremities. Weakness in left leg(s) Speech with expressive aphasia noted, Facial droop on right, Facial symmetry: tongue is midline, Pupils are PERRLA, pt states "mild tingling in right leg.". Denies dizziness, headache Reports left sided weakness from previous CVA. denies changes in left sided deficits. . Cardiovascular: Capillary refill < 3 seconds in bilateral fingers Chest pain is denied. Respiratory: Airway is patent Respiratory effort is even, unlabored, Denies shortness of breath. Derm: Skin is pink, warm & dry. 18:15 General: Appears in no apparent distress, comfortable, Behavior is appropriate for age, ead cooperative. Neurological: Level of Consciousness is awake, alert, obeys commands, Oriented to person, place, time. Respiratory: Airway is patent Respiratory effort is even, unlabored. Derm: Skin is pink, warm & dry. 19:15 General: Appears in no apparent distress, comfortable, Behavior is cooperative. mlc General: Reports fatigue for. General: pt awaking MRI. Pain: Denies pain. Neurological: Level of Consciousness is awake, alert, Oriented to person, place, time. Neurological: Test Desk Supervisor are equal bilaterally Weakness in left leg(s) Facial droop on right, Facial symmetry: tongue is midline. Cardiovascular: Heart tones S1 S2 present Rhythm is sinus tachycardia. Respiratory: Airway is patent Respiratory effort is even, unlabored, Respiratory pattern is regular, Breath sounds are clear bilaterally. GI: Abdomen is obese, Bowel sounds present X 4 quads. Derm: Skin is pink, warm & dry. 20:10 Reassessment: pt currently in MRI. mlc 20:54 General: Appears in no apparent distress, comfortable, Behavior is cooperative. mlc General: no changes since prior. resp easy/unlabored. . 21:24 Reassessment: Patient appears in no apparent distress at this time. no changes since mlc prior. pt resting comfortably in bed, resp easy/unlabored . 22:26 Reassessment: Patient appears in no apparent distress at this time. Patient denies pain mlc at this time. pt resting comfortably in bed, resp easy/unlabored. pt offers no complaints. . 22:37 General: Appears in no apparent distress, comfortable, Behavior is cooperative. mlc Neurological: Level of Consciousness is awake, alert, Oriented to person, place, time. Respiratory: Airway is patent Respiratory effort is even, unlabored, Respiratory pattern is regular. Derm: Skin is pink, warm & dry. Vital Signs: 16:32 BP 169 / 84; Pulse 110; Resp 16; Temp 101.7(T); Pulse Ox 99% on R/A; Weight 101.6 kg rs6 (R); Height 5 ft. 8 in. (172.72 cm) (R); Pain 7/10; 16:58 BP 140 / 71 (auto/); ead 17:00 Pulse 108 MON; Resp 16; Pulse Ox 95% on R/A; ead 17:13 BP 132 / 68 (auto/); ead 17:14 Pulse 108 MON; Pulse Ox 98% ; ead 17:28 BP 132 / 68 (auto/); ead 17:29 Pulse 108 MON; Pulse Ox 97% ; ead 17:43 BP 131 / 68 (auto/); ead 17:44 Pulse 108 MON; Pulse Ox 95% ; ead 17:58 BP 134 / 66 (auto/); ead 17:58 Pulse 108 MON; Pulse Ox 98% ; ead 18:22 BP 132 / 79 (auto/); ead 18:24 Pulse 106 MON; Pulse Ox 97% ; ead 18:28 BP 130 / 72 (auto/); mlc 18:29 Pulse 106 MON; Pulse Ox 96% ; mlc 18:43 BP 127 / 67 (auto/); mlc 18:44 Pulse 106 MON; Pulse Ox 94% ; mlc 18:58 BP 123 / 64 (auto/); mlc 18:59 Pulse 106 MON; Pulse Ox 97% ; mlc 19:13 BP 127 / 70 (auto/); mlc 19:14 Pulse 104 MON; Pulse Ox 95% ; mlc 19:28 BP 120 / 64 (auto/); mlc 19:29 Pulse 102 MON; Pulse Ox 95% ; mlc 19:35 Temp 100.6(O); cln 19:43 BP 121 / 65 (auto/); mlc 19:44 Pulse 106 MON; Pulse Ox 95% ; mlc 20:56 BP 117 / 66 (auto/); mlc 20:58 Pulse 94 MON; Pulse Ox 95% ; mlc 21:26 Pulse 98 MON; Pulse Ox 95% ; mlc 21:26 BP 119 / 68 (auto/); mlc 21:56 Pulse 92 MON; Pulse Ox 95% ; mlc 21:56 BP 113 / 72 (auto/); mlc 22:25 Pulse 90 MON; Pulse Ox 96% ; mlc 22:37 BP 123 / 70; Pulse 88; Resp 18; Temp 99.5(O); Pulse Ox 94% ; Pain 0/10; mlc 16:32 Body Mass Index 34.06 (101.60 kg, 172.72 cm) rs6 Vitals: 16:32 Log In Time: September 23, 2016 at 16:32. RN notified that patient meets Red Flag rs6 criteria. ED Course: 16:32 Patient visited by Caryn Vasquez PCA. rs6 16:32 Daniella Rowley is Private Physician. rs6 16:32 Patient moved to Waiting rs6 16:34 Patient visited by Caryn Vasquez PCA. rs6 16:40 Triage Initiated jjr 16:46 Nathalie Oquendo RN is Primary Nurse. jjr 16:46 Trista Sauer DO is PHCP. jo4 16:46 Riccardo Blue MD is Attending Physician. jo4 16:46 Patient moved to 11 jjr 16:57 Patient visited by Trista Sauer DO. jo4 16:57 Patient visited by Trista Sauer DO. jo4 17:01 Inserted saline lock: 18 gauge in right antecubital area and blood collected. The ead patient tolerated the procedure well. 17:07 The patient / caregiver is instructed regarding the plan of care and ED course. Patient ead has correct armband on for positive identification. Placed in gown. Bed in low position. Call light in reach. Side rails up X2. Adult w/ patient. ekg monitor tech on. Pulse ox on. NIBP on. 17:14 Patient visited by Nathalie Oquendo RN. ead 17:52 BMP Sent. ead 17:52 CBC with Diff Sent. ead 18:18 Patient visited by Nathalie Oquendo RN. ead 18:18 [facility] [place] Payment Agreement was scanned into [email or web address] and attached to record. jp5 18:25 Patient visited by Nathalie Oquendo RN. ead 18:25 UA Sent. ead 19:15 Any Garcia,ALBIN is Primary Nurse. mlc 19:17 Patient visited by Any Garcia RN. mlc 19:31 Primary Nurse role handed off by Nathalie Oquendo RN mcp 19:35 Patient visited by Tenisha lBanco PCA. cln 19:41 Chest, 2 View (pa\\E\\lat) Returned. EDMS 19:41 CT Head Without Contrast Returned. EDMS 19:49 Patient name changed from Yogesh\\S\\D\\S\\Willaims\\S\\ to Yogesh\\S\\D\\S\\Tushar. EDMS 19:50 Patient moved to MRI ml3 20:12 Patient visited by Any Garcia RN. mlc 20:46 Patient moved to 11 ml3 20:55 Patient visited by Any Garcia,ALBIN. mlc 21:26 Patient visited by Any Garcia RN. mlc 21:26 -MRA-Brain without contrast Returned. EDMS 21:26 -MRI-Brain without Returned. EDMS 21:42 Attending Physician role handed off by Riccardo Blue MD cs11 21:42 Louie Wing DO is Attending Physician. cs11 22:28 Patient visited by Any Garcia RN. mlc 22:28 Daniella Rowley is Referral Physician. cs11 22:37 Discontinued IV lock intact, bleeding controlled, pressure dressing applied, No mlc redness/swelling at site. No procedures done that require assistance. 09/24 19:07 T-Sheet-- Draft Copy was scanned into [email or web address] and attached to record. klr Administered Medications: 09/23 18:25 Drug: Acetaminophen 650 mg [acetaminophen 325 mg tablet (2 tabs)] Route: PO; ead Order Results: Lab Order: CBC with Diff; SPEC'M 09/23/16 16:59 Test: WHITE BLOOD COUNT; Value: 9.4; Range: 4.0-10.0; Units: K/mm3; Status: F Test: RED BLOOD COUNT; Value: 4.32; Range: 4.30-6.10; Units: M/mm3; Status: F Test: HEMOGLOBIN; Value: 14.2; Range: 14.0-18.0; Units: g/dl; Status: F Test: HEMATOCRIT; Value: 41.1; Range: 42.0-52.0; Abnormal: Below low normal; Units: %; Status: F Test: MEAN CORPUSCULAR VOLUME; Value: 95.2; Range: 80.0-96.0; Units: fl; Status: F Test: MEAN CORPUSCULAR HEMOGLOBIN; Value: 32.8; Range: 27.0-33.0; Units: pg; Status: F Test: MEAN CORPUSCULAR HGB CONC; Value: 34.5; Range: 32.0-36.5; Units: g/dl; Status: F Test: RED CELL DISTRIBUTION WIDTH; Value: 12.4; Range: 11.5-14.5; Units: %; Status: F Test: PLATELET COUNT, AUTOMATED; Value: 240; Range: 150-450; Units: k/mm3; Status: F Test: NEUTROPHILS %; Value: 84.7; Range: 36.0-66.0; Abnormal: Above high normal; Units: %; Status: F Test: LYMPH %; Value: 7.5; Range: 24.0-44.0; Abnormal: Below low normal; Units: %; Status: F Test: MONO %; Value: 4.7; Range: 0.0-5.0; Units: %; Status: F Test: EOS %; Value: 1.8; Range: 0.0-3.0; Units: %; Status: F Test: BASO %; Value: 0.9; Range: 0.0-1.0; Units: %; Status: F Test: LARGE UNSTAINED CELL %; Value: 0.5; Range: 0.0-4.0; Units: %; Status: F Test: NEUTROPHILS #; Value: 7.9; Range: 1.8-7.7; Abnormal: Above high normal; Units: K/mm3; Status: F Test: LYMPH #; Value: 0.7; Range: 1.5-4.5; Abnormal: Below low normal; Units: K/mm3; Status: F Test: MONO #; Value: 0.4; Range: 0.0-0.8; Units: K/mm3; Status: F Test: EOS #; Value: 0.2; Range: 0.0-0.50; Units: K/mm3; Status: F Test: BASO #; Value: 0.1; Range: 0.0-0.2; Units: K/mm3; Status: F Test: LARGE UNSTAINED CELL #; Value: 0.0; Range: 0.0-0.4; Units: K/mm3; Status: F Lab Order: [facility]; SPEC'M 09/23/16 16:59 Test: GLUCOSE, FASTING; Value: 140; Range: 70-105; Abnormal: Above high normal; Units: MG/DL; Status: F Test: BLOOD UREA NITROGEN; Value: 15; Range: 7-18; Units: MG/DL; Status: F Test: CREATININE FOR GFR; Value: 1.26; Range: 0.70-1.30; Units: MG/DL; Status: F Test: GLOMERULAR FILTRATION RATE; Value: > 60.0; Range: >56; Status: F Test: SODIUM LEVEL; Value: 142; Range: 136-145; Units: MEQ/L; Status: F Test: POTASSIUM SERUM; Value: 3.6; Range: 3.5-5.1; Units: MEQ/L; Status: F Test: CHLORIDE LEVEL; Value: 105; Range: 98-107; Units: MEQ/L; Status: F Test: CARBON DIOXIDE LEVEL; Value: 29; Range: 21-32; Units: MEQ/L; Status: F Test: ANION GAP; Value: 8; Range: 8-16; Units: MEQ/L; Status: F Test: CALCIUM LEVEL; Value: 9.5; Range: 8.5-10.1; Units: MG/DL; Status: F Test Note: ; Units are mL/min/1.73 m2 Chronic Kidney Disease Staging per NKF: Stage I & II GFR >=60 Normal to Mildly Decreased Stage III GFR 30-59 Moderately Decreased Stage IV GFR 15-29 Severely Decreased Stage V GFR <15 Very Little GFR Left ESRD GFR <15 on WASH AND GREASER Lab Order: UA; SPEC'M 09/23/16 18:23 Test: APPEARANCE, URINE; Value: CLEAR; Range: CLEAR; Status: F Test: COLOR, URINE; Value: YELLOW; Range: YELLOW; Status: F Test: PH,URINE; Value: 5.0; Range: 5.0-9.0; Units: UNITS; Status: F Test: SPECIFIC GRAVITY URINE AUTO; Value: 1.015; Range: 1.002-1.035; Status: F Test: PROTEIN, URINE AUTO; Value: NEGATIVE; Range: NEGATIVE; Units: mg/dL; Status: F Test: GLUCOSE, URINE (UA) AUTO; Value: NEGATIVE; Range: NEGATIVE; Units: mg/dL; Status: F Test: KETONE, URINE AUTO; Value: NEGATIVE; Range: NEGATIVE; Units: mg/dL; Status: F Test: UROBILINOGEN, URINE AUTO; Value: 0.2; Range: 0.0-2.0; Units: mg/dL; Status: F Test: BILIRUBIN, URINE AUTO; Value: NEGATIVE; Range: NEGATIVE; Status: F Test: NITRITE, URINE AUTO; Value: NEGATIVE; Range: NEGATIVE; Status: F Test: LEUKOCYTE ESTERASE, URINE AUTO; Value: NEGATIVE; Range: NEGATIVE; Status: F Test: BLOOD, URINE BLOOD; Value: NEGATIVE; Range: NEGATIVE; Status: F Test: WBC, URINE AUTO; Value: 4; Range: 0-3; Abnormal: Above high normal; Units: /HPF; Status: F Test: RBC, URINE AUTO; Value: 1; Range: 0-3; Units: /HPF; Status: F Test: BACTERIA, URINE AUTO; Value: NEGATIVE; Range: NEGATIVE; Status: F Test: SQUAMOUS EPITHELIAL CELL UR AU; Value: 0; Range: 0-6; Units: /HPF; Status: F Test: MUCUS, URINE; Value: SMALL; Range: NEGATIVE; Status: F Test: HYALINE CAST, URINE AUTO; Value: 0; Range: 0-1; Units: /LPF; Status: F Radiology Order: CT Head Without Contrast Test: CT Head Without Contrast REASON FOR EXAMINATION: CVA >4.5hrs; CT study of the brain without contrast:; ; History: CVA greater than 4 1/2 hours.; ; No comparison study.; ; Findings: Bone window settings demonstrate an intact bony calvarium. Visualized; paranasal sinuses are clear.; ; There is mild diffuse cerebral atrophy. Some small vessel changes are seen in; the periventricular white matter of the parietal lobes. There is no evidence of; intracranial hemorrhage. No extra-axial fluid collection is seen. No cortical; infarct is appreciated. No mass or midline shift is seen. There is minimal; vascular calcification.; ; Impression:; ; Diffuse atrophy and vascular calcification. Mild small vessel changes. No acute; intracranial abnormality.; ; ; Signed by; Americo Barker MD 09/23/2016 07:31 P; Radiology Order: Chest, 2 View (pa\\E\\lat) Test: Chest, 2 View (pa\\E\\lat) REASON FOR EXAMINATION: CVA >4.5hrs; Chest x-ray: Two views:; ; History: CVA greater than 4 1/2 hours.; ; Findings: The lungs are well inflated and clear. CP angles are sharp. Heart is; not enlarged. The aorta is slightly tortuous. No bony abnormality is seen.; Pulmonary vasculature is not increased.; ; Impression:; ; No active disease.; ; ; Signed by; Americo Barker MD 09/23/2016 07:31 P; Radiology Order: -MRA-Brain without contrast Test: -MRA-Brain without contrast REASON FOR EXAMINATION: CVA >4.5hrs; ; MRA of the brain; Clinical history: stroke.; Technique: Aves-rr-wavnkh MRA images of the brain were obtained without administration of contrast. 3; -D MIP images were also obtained.; Findings: The vascular structures extending from the distal carotid and vertebrobasilar arterial syst; ems, through the [place], demonstrate normal caliber and contour. There is no evidence of an; eurysm, stenosis, or thrombosis.; Impression: Unremarkable MRA examination of the brain.; ; Radiology Order: -MRI-Brain without Test: -MRI-Brain without REASON FOR EXAMINATION: CVA >4.5hrs; ; MRI of the brain without contrast; Clinical history: stroke.; Technique: Multiecho multiplanar MRI images of the brain were obtained without administration of cont; rast. Diffusion weighted images with ADC mapping was also obtained.; Findings:; The ventricles and sulci are symmetric bilaterally. There is minimal T2 hyperintensity in the subcort; ical white matter bilaterally. The brain parenchyma otherwise demonstrates uniform and normal signal; on all sequences. There is no midline shift, mass effect, or extra-axial fluid collection. The midlin; e intracranial structures do not demonstrate any gross abnormalities. The cervical cranial junction i; s intact. The orbits are unremarkable. The visualized paranasal sinuses and mastoid air cells are [place]rit[place]; ar. The osseous structures and superficial soft tissues are unremarkable. The vascular structures dem; onstrate appropriate flow voids.; Impression: No evidence of acute hemorrhage or infarct. Subcortical white matter signal changes sugge; st mild chronic small vessel ischemic disease.; ; Outcome: 22:27 MRI Study completed. [facility] [place] 22:27 CT Study completed. [facility] [place] 22:28 Discharge ordered by Provider. cs11 22:37 Discharge Assessment: Patient awake, alert and oriented x 3. No cognitive and/or mlc functional deficits noted. Patient verbalized understanding of disposition instructions. patient administered narcotics - no. The following High Risk Discharge criteria are identified: None. Discharged to home via wheelchair, with family. Condition: good Condition: stable. Discharge instructions given to patient, Instructed on discharge instructions, follow up and referral plans. Demonstrated understanding of instructions, Pt was receptive of discharge instructions/ teaching. Property sent home with patient. 22:39 Patient left the ED. [facility] Signatures: Dispatcher [employer] EDVerito Palencia RN RN mcp Lopresti, Mary-Elizabeth, Visitor Services Representative Unit ml3 Consuelo Dallas RN RN jjr Schiff, Craig, DO DO cs11 Nathalie Oquendo,RN RN Any Childs,RN RN reina Vasquez, Caryn, SALES SERVICE REPRESENTATIVE SALES SERVICE REPRESENTATIVE rs6 Tenzin Contreras jp5 Trista Sauer, DO FONTAINE jo4 Bella, Tenisha, SALES SERVICE REPRESENTATIVE SALES SERVICE REPRESENTATIVE cln Vianney Bliss Chart Complete MTDD
== END 2016-09-23 22:39 | disposition home or self-care (01) ==
LOC: M ED 16:30
DX: G45.9 Transient cerebral ischemic attack, unspecified (principal); I10 Essential (primary) hypertension; E78.5 Hyperlipidemia, unspecified; G62.9 Polyneuropathy, unspecified; N40.0 Benign prostatic hyperplasia without lower urinary tract symptoms; Z86.73 Personal history of transient ischemic attack (TIA), and cerebral infarction without residual deficits; Z79.899 Other long term (current) drug therapy